=== PATIENT | female | born 1945 | race Caucasian/White ===

== ENCOUNTER → 2016-12-29 | Outpatient (CLI) | payer OTHER ==
[~2016-12-29] MED LIST: ABILIFY10 MG PO; ACYCLOVIR400 MG PO; ADVAIR 100/501 DISK IH; ADVAIR 250/501 DISK IH; ALBUTEROL SULF8.5 GM IH; ALPRAZOLAM ER0.5 MG PO; ALPRAZOLAM0.5 MG PO; AMLODIPINE BESY10 MG PO; APAP/CODEINE 300-30 PO; Advair 500/50 Diskus IH; BACTRIM,SEPT1 TABLET PO; BENADRYL ALLERG25 MG PO; BETIMOL 0.100 DROP/5 BOTH EYES; BROMDAY1.7 M1 RIGHT EYE; CALCIUM CARBONATE PO; CALCIUM500 M4 PO; COMPAZINE10 MG PO; CYMBALTA60 MG PO; Claritin,Alavart PO; Colace PO; Cymbalta PO; DALIRESP; DALIRESP500 MCG PO; DESYREL100 MG PO; DIGOXIN125 MCG PO; DOXYCYCLINE HY100 MG PO; ELOCON 0.1% CRE15 GM TP; Elavil PO; FLORASTOR250 MG PO; FLUOXETINE HCL60 MG; GABAPENTIN300 MG PO; HYDROCHLOROTHIA25 MG PO; IRON325 M1 PO; LIDODERM 5% P1 PATCH; LUNESTA2 MG PO; Lanoxin,Digitek PO; Levaquin PO; Lopressor PO; MELATONIN10 M2 PO; MIRTAZAPINE15 M1 PO; MIRTAZAPINE15 MG PO; MIRTAZAPINE30 MG PO; MULTIVITAMIN1 EAC2 PO; NICOTROL INHALE10 MG IH; Neurontin PO; Norvasc PO; OXYCODONE HCL20 M1 PO; OXYCONTIN10 MG PO; OxyCONTIN PO; PRIMAXIN 500 M500 MG IV; PRIMIDONE50 MG PO; PROMETHEGAN25 MG PR; PROVENTIL,2.5 MG/3 M IH; PROZAC20 MG PO; Percocet 5/325,Endoc PO; Phenergan PR; Pred Forte 1%,Omnipr RIGHT EYE; ROXICET 5-3251 EACH PO; Remeron PO; SPIRIVA1 INHALATI IH; TEMAZEPAM15 MG PO; TYLENOL EXTRA500 MG PO; TYLENOL WITH C1 EACH PO; Theragran PO; Timoptic-0.5%,Isatol BOTH EYES; VALACYCLOVIR1000 MG PO; VANCOMYCIN PO; VENTOLIN HFA18 GM IH; VITAMIN D31000 UNI2 PO; Vancocin Oral Soluti PO; WESTCORT TP; XANAX0.5 MG PO; XARELTO20 MG PO; XERESE 5%-1% CRE5 GM TP; Xalatan 0.005% Ophth BOTH EYES; Xarelto PO; ZOFRAN ODT8 MG PO; ZOFRAN4 MG PO; ZOVIRAX400 MG PO; predniSONE PO
[2016-12-29 09:18] LABS: HEMATOCRIT 40.6 % (36.0-46.0); MCH 30.3 PG (29.0-34.0); MCHC 32.3 G/DL (30.0-36.0); MEAN PLAT.VOLUME 9.8 uM^3 (9.5-12.4); PLATELET COUNT 367 K/uL (156-360); RBC DIS.WIDTH-CV 13.6 % (11.8-14.6); RBC DIS.WIDTH-SD 47.1 % (39-53); RED BLOOD COUNT 4.32 M/uL (3.80-5.20); WHITE BLOOD COUNT 11.4 K/uL (4.1-10.2)
[2016-12-29 09:28] LABS: INTER. NORMALIZED RATIO 1.1; PROTHROMBIN TIME 11.4 (9.2-11.2); PTT 27.5 (25-32)
== END | disposition home or self-care (01) ==
LOC: OPR 08:50 → EDSTATUS 09:00
PROVIDERS: Internal Medicine
PROC: 0PB13ZX Excision of 1 to 2 Ribs, Percutaneous Approach, Diagnostic (ICD-10-PCS; principal; 2016-12-29)
DX: C79.51 Secondary malignant neoplasm of bone (principal); J44.9 Chronic obstructive pulmonary disease, unspecified; G47.00 Insomnia, unspecified; Z87.891 Personal history of nicotine dependence; I48.91 Unspecified atrial fibrillation; Z79.01 Long term (current) use of anticoagulants
CPT/HCPCS: 71010; 77012; 85027; 85610; 85730; 87102; 88305; 88341 TC; 88342 TC; J3010

== ENCOUNTER 2017-04-09 20:44 | Emergency (ER) | payer OTHER ==
[~2017-04-09] VITALS: Ht 170.2 cm; Wt 60.9 kg
[2017-04-09 21:38] LABS: CARBON DIOXIDE (BICARBONATE) 29.2 MEQ/L (20-31); EOSINOPHIL (%) 0.1 % (0-5); HEMATOCRIT 29.8 % (36.0-46.0); IMMATURE GRANULOCYTE (%) 0.7 % (0.0-0.7); IMMATURE GRANULOCYTE COUNT 0.1 K/uL; INSTRUMENT ABS NEUTROPHIL CT 9.8 K/uL; LYMPHOCYTE COUNT 0.5 K/uL (1.0-2.8); MCHC 32.9 G/DL (30.0-36.0); MCV 97.4 FL (83-99); MEAN PLAT.VOLUME 9.6 uM^3 (9.5-12.4); MONOCYTE (%) 4.8 % (3-12); MONOCYTE COUNT 0.5 K/uL (0-0.8); NEUTROPHIL (%) 89.5 % (45-76); NEUTROPHIL COUNT 9.8 K/uL (1.8-6.4); PLATELET COUNT 102 K/uL (156-360); RBC DIS.WIDTH-CV 15.5 % (11.8-14.6); RBC DIS.WIDTH-SD 54.9 % (39-53); RED BLOOD COUNT 3.06 M/uL (3.80-5.20); WHITE BLOOD COUNT 10.9 K/uL (4.1-10.2)
[2017-04-09 21:51] LABS: CHLORIDE 98 mEq/L (99-109); POTASSIUM 4.4 mEq/L (3.7-5.4); SODIUM 130 mEq/L (136-147)
[2017-04-09 21:54] LABS: GLUCOSE 121 mg/dL (70-99)
[2017-04-09 21:55] LABS: ANION GAP 9 MEQ/L (2-14)
[2017-04-09 21:56] LABS: TOTAL BILIRUBIN 0.6 mg/dL (0.0-1.0)
[2017-04-09 21:57] LABS: ALKALINE PHOSPHATASE 95 IU/L (3-129); GFR ESTIMATE (CALCULATED) > 59 mL/min/
[2017-04-09 21:58] LABS: UREA NITROGEN (BUN) 10 mg/dL (9-23)
[2017-04-09 22:00] LABS: CREATINE KINASE 146 IU/L (1-294)
[2017-04-09 22:04] LABS: TROP-I INTERPRETATION NEGATIVE; TROPONIN-I < 0.01 ng/mL (0.0-0.30)
[2017-04-10 01:21] LABS: ADD MIUA? YES; BILIRUBIN NEGATIVE; BLOOD SMALL; COLOR YELLOW ((YELLOW)); GLUCOSE (STRIP) NEGATIVE; KETONES 5; LEUKOCYTES NEGATIVE; NITRITE NEGATIVE; PROTEIN (STRIP) NEGATIVE; SPECIFIC GRAVITY 1.006 (1.000-1.030); UROBILINOGEN 0.2 MG/DL (0.2-1.0)
[2017-04-10 01:26] LABS: BACTERIA RARE /HPF; EPITHELIAL CELLS RARE /HPF; MUCUS TRACE /LPF; RED BLOOD CELLS 0-5 /HPF (0-5); UCUL ADDED? NO; WHITE BLOOD CELLS 0-5 /HPF (0-5)
[2017-04-10 02:12] VITALS: BP 131/74
== END 2017-04-10 02:14 | disposition home or self-care (01) ==
LOC: EME 20:44
PROVIDERS: Emergency Medicine
DX: S32.19XA Other fracture of sacrum, initial encounter for closed fracture (principal); T50.905A Adverse effect of unspecified drugs, medicaments and biological substances, initial encounter; C34.90 Malignant neoplasm of unspecified part of unspecified bronchus or lung; C78.7 Secondary malignant neoplasm of liver and intrahepatic bile duct; C79.51 Secondary malignant neoplasm of bone; W18.30XA Fall on same level, unspecified, initial encounter; R29.6 Repeated falls; J44.9 Chronic obstructive pulmonary disease, unspecified; I10 Essential (primary) hypertension; F32.9 Major depressive disorder, single episode, unspecified; Z87.891 Personal history of nicotine dependence; Z88.2 Allergy status to sulfonamides
CPT/HCPCS: 70450; 71010; 72131; 74176; 80053; 81003; 82550; 82803; 84484; 85025; 93005; 93970; 94640; 99281; 99284; J7030